=== PATIENT | female | born 1960 | race Caucasian/White ===

== ENCOUNTER → 2017-10-01 | Day surgery (SDC) | payer BC ==
[~2017-10-01] MED LIST: IOHEXOL 180 MG/ML 20 ML VIAL (for RAD DIAG) EPIDURAL ONE; LIDOCAINE HCL 2% PF 2 ML VIAL ONE; PROPOFOL 200 MG/20 ML AMP IV ONE; TRIAMCINOLONE ACETONIDE 40 MG/ML VIAL NERV BLOCK ONE
--- NOTE | 2017-10-01 10:33 | M6 ---
cc: Elfego Goodwin MD 10/01/2017 PROCEDURE: Fluoroscopically-guided left S1 transforaminal epidural steroid injection. PROCEDURE NOTE: History and physical was completed and signed. Consent was signed. Procedure site was marked. Medications were listed and reconciled. Pain score was recorded. Allergies were noted. Time out was taken. Fluoroscopy time was recorded where applicable. Sedation was administered or directed by Dr. Goodwin. The patient was given oxygen. The patient was monitored by a registered nurse. Total procedure time was greater than 15 minutes. An IV was started, blood pressure cuff, pulse oximeter and EKG were applied. The patient was placed in the prone position on a Azam table, sedated with small amounts of Versed and propofol titrated to effect. Vital signs were monitored and remained stable throughout the procedure. The patient remained responsive throughout the procedure. The lumbar area was scrubbed with antimicrobial solution, prepped with 10% Betadine solution, and draped with sterile drapes. Fluoroscopy was used in both the AP and lateral projections to clearly visualize the left S1 neural foramen. Then separate sterile 22-gauge, 3-1/2 inch Chiba needles were advanced under fluoroscopic guidance into the dorsal-most aspect of each foramen. There was negative aspiration for blood or CSF. There were no reported paresthesias by the patient. There was no washout of 2 mL of Omnipaque. Then after waiting approximately 60 seconds, the patient was slowly given 3 mL of 1% Xylocaine, 3 mL of Omnipaque and 40 mg of Kenalog at each location. Following this, the patient was taken to the recovery room with stable vital signs, neurologically intact. Elfego Goodwin MD [facility] , 09:09 AM , 09:53 AM
== END | disposition home or self-care (01) ==
LOC: PHSDC 06:39
PROVIDERS: ATTEND Pain Medicine Interventional Pain Medicine
DX: M54.5 Low back pain (principal); M79.652 Pain in left thigh
CPT/HCPCS: 64483; 99152; J3301; Q9965

== ENCOUNTER → 2017-12-02 | Day surgery (SDC) | payer BC ==
[~2017-12-02] MED LIST changes: +LIDOCAINE HCL 1% 30 ML VIAL NERV BLOCK ONE; -LIDOCAINE HCL 2% PF 2 ML VIAL ONE
--- NOTE | 2017-12-02 09:51 | M6 ---
cc: Elfego Goodwin MD DATE: 12/02/2017 PROCEDURE: Fluoroscopically guided left S1 transforaminal epidural steroid injection. History and physical was completed and signed. Consent was signed. Procedure site was marked. Medications were listed and reconciled. Pain score was recorded. Allergies were noted. Time out was taken. Fluoroscopy time was recorded where applicable. Sedation was administered or directed by Dr. Goodwin. The patient was given oxygen. The patient was monitored by a registered nurse. Total procedure time was greater than 15 minutes. IV was started. Blood pressure cuff, pulse oximeter and EKG were applied. The patient was placed in the prone position on a Azam table, sedated with small amounts of propofol titrated to effect. Vital signs were monitored and remained stable throughout the procedure. The sacral area was prepped with alcohol and 10% Betadine solution, draped with sterile drapes. Fluoroscopy was used to visualize the left S1 neural foramen. A 3.5 inch, 22 gauge Chiba needle was advanced into the neural foramen under fluoroscopic guidance. There was negative aspiration for blood or any other type of fluid. Omnipaque dye was injected and seen to spread along the S1 nerve root and at this point, the patient was given 3 mL of 1% Xylocaine and 60 mg of Kenalog. Following the procedure, the patient was taken to the recovery room with stable vital signs and neurologically intact. She will be evaluated immediately and with followup to determine if she has a subjective decrease in her usual pain and a corresponding objective increase in her functional capabilities. Elfego Goodwin MD [facility] , 09:26 AM , 09:50 AM
--- NOTE | 2017-12-02 09:58 | M6 ---
cc: Elfego Goodwin MD DATE: 12/02/2017 PROCEDURE: Epidurogram. X-ray images were saved to the patient's chart. PREPROCEDURE DIAGNOSIS: Left lumbar radiculopathy. POSTPROCEDURE DIAGNOSIS: Left lumbar radiculopathy. PREPROCEDURE NOTE: Ms. Rivera has left lower extremity pain. She has seen a neurosurgeon and she has considered neurosurgery to relieve her pain. She had 2 lumbar epidural steroid injections up in [place], which gave some relief, and then in addition on 10/01/2017, I gave a left S1 epidural steroid injection, which provided only minimal relief. If her epidural injections fail to provide significant relief, the patient may be considering surgery. The patient has a L5-S1 left-sided herniated disc that is encroaching on the S1 nerve root. The epidurogram was done today to determine if there was any obstruction to the flow of medication that we have been injecting on the S1 nerve root. PROCEDURE NOTE: History and physical was completed and signed. Consent was signed. Procedure site was marked. Medications were listed and reconciled. Pain score was recorded. Allergies were noted. Time out was taken. Fluoroscopy time was recorded where applicable. Sedation was administered or directed by Dr. Goodwin. The patient was given oxygen. The patient was monitored by a registered nurse. Total procedure time was greater than 15 minutes. IV was started. Blood pressure cuff, pulse oximeter and EKG were applied. The patient was placed in the prone position on a Azam table, sedated with small amounts of propofol titrated to effect. Vital signs were monitored and remained stable throughout the procedure. The sacral area was prepped with alcohol and 10% Betadine solution and draped with sterile drapes. Fluoroscopy was used to visualize the left S1 neural foramen. A 3.5 inch, 22 gauge Chiba needle was advanced into the foramen. There was negative aspiration for blood or any other type of fluid and the patient was given 3 mL of Omnipaque. The dye was seen to spread easily along the S1 nerve root distally and also spread in a cephalad direction into the lateral recess of the epidural space. The dye spread up to the cephalad border of L4, so there does not seem to be any obstruction of flow of the medication along the left S1 nerve root. W. MD ORQUIDEA Shah/SIMI , 09:32 AM , 09:57 AM
== END | disposition home or self-care (01) ==
LOC: PHSDC 07:29
PROVIDERS: ATTEND Pain Medicine Interventional Pain Medicine
DX: M54.16 Radiculopathy, lumbar region (principal); M79.652 Pain in left thigh
CPT/HCPCS: 64483; 99152; J3301; Q9965